=== PATIENT | female | born 2000 | race Two or more races ===

== ENCOUNTER 2024-11-16 08:05 | Emergency (ER) | payer OTHER ==
[~2024-11-16] VITALS: Ht 167.6 cm; Wt 56.7 kg
[2024-11-16] MEDS ORDERED: 0.9 % SODIUM CHLORIDE 1,000 ML IV STA (08:49)
[2024-11-16 09:30] LABS: HEMATOCRIT 37.7 % (36.0-45.00); HEMOGLOBIN 12.2 g/dL (12.0-15.00); MEAN CELL VOLUME 79.9 fL (80.00-100.00); MEAN CORPUSCULAR HGB CONC 32.5 g/dl (32.0-36.0); PLATELET COUNT 288 K/uL (150-450); RED BLOOD COUNT 4.71 M/uL (4.00-6.00); RED CELL DISTRIBUTION WIDTH 15.9 % (11.5-14.5)
[2024-11-16 09:57] LABS: CALCIUM 8.7 mg/dL (8.5-10.1); CREATININE SERUM 0.82 mg/dL (0.55-1.02); GFR 85.65; POTASSIUM 4.03 mEq/L (3.5-5.1)
[2024-11-16] MEDS ORDERED: FAMOTIDINE/PF 20 MG/2 ML VIAL IV STA (10:41)
[2024-11-16] MEDS ORDERED: ONDANSETRON HCL 2 MG/ML VIAL IV STA (10:42)
[2024-11-16] MEDS ORDERED: ONDANSETRON HCL 2 MG/ML VIAL ONE (10:45)
[2024-11-16] MEDS ORDERED: FAMOTIDINE/PF 20 MG/2 ML VIAL ONE (10:46)
== END 2024-11-16 13:51 | disposition home or self-care (01) ==
LOC: ER 08:08
PROVIDERS: Emergency Medicine
DX: K52.89 Other specified noninfective gastroenteritis and colitis (principal); R11.10 Vomiting, unspecified
CPT/HCPCS: 36415; 96365; 96366; 99282; J2405; J3490; J7030

== ENCOUNTER 2025-02-23 12:44 | Emergency (ER) | payer OTHER ==
[~2025-02-23] VITALS: Ht 167.6 cm; Wt 56.7 kg
[2025-02-23] MEDS ORDERED: 0.9 % SODIUM CHLORIDE 1,000 ML IV ONE (13:00)
[2025-02-23] MEDS ORDERED: FAMOtidine 10 MG/ML (4ML VIAL) IV ONE (13:00)
[2025-02-23] MEDS ORDERED: KETOROLAC TROMETHAMINE 30 MG VIAL IV ONE (13:00)
[2025-02-23] MEDS ORDERED: ONDANSETRON HCL 2 MG/ML VIAL IV ONE (13:00)
[2025-02-23] MEDS ORDERED: KETOROLAC TROMETHAMINE 30 MG VIAL ONE (13:20)
[2025-02-23] MEDS ORDERED: ONDANSETRON HCL 2 MG/ML VIAL ONE (13:21)
[2025-02-23] MEDS ORDERED: FAMOTIDINE/PF 20 MG/2 ML VIAL ONE (13:21)
[2025-02-23 13:52] LABS: HEMATOCRIT 35.3 % (36.0-45.00); HEMOGLOBIN 11.9 g/dL (12.0-15.00); MEAN CELL VOLUME 79.4 fL (80.00-100.00); MEAN CORPUSCULAR HEMOGLOBIN 26.9 pg (27.00-32.0); MEAN CORPUSCULAR HGB CONC 33.8 g/dl (32.0-36.0); PLATELET COUNT 332 K/uL (150-450); RED BLOOD COUNT 4.44 M/uL (4.00-6.00); RED CELL DISTRIBUTION WIDTH 14.3 % (11.5-14.5)
[2025-02-23 14:29] LABS: ALBUMIN 3.6 gm/dL (3.4-5.0); ALKALINE PHOSPHATASE 44 U/L (50-136); ALT/SGPT 31 U/L (12-78); ANION GAP 7 (10.0-20.0); AST/SGOT 22 U/L (15-37); BILIRUBIN TOTAL 0.37 mg/dL (0.3-1.2); BLOOD UREA NITROGEN 10 mg/dL (7-18); BUN CREA RATIO 13 (7.0-25.0); CALCIUM 8.9 mg/dL (8.5-10.1); CARBON DIOXIDE 27 mEq/L (21-32); CHLORIDE 113 mmol/L (98-107); CREATININE SERUM 0.77 mg/dL (0.55-1.02); GFR 91.34; GLUCOSE FASTING 83 mg/dL (65-100); OSMOLALITY SERUM 283 MOSM/KG (275-295); SODIUM 143 mmol/L (136-145); TOTAL PROTEIN 7.6 gm/dL (6.4-8.2)
[2025-02-23 14:35] LABS: HCG QUANTITATIVE < 1 mUI/mL (1-3)
[2025-02-23] MEDS ORDERED: PROTONIX40 MG PO (15:50)
[2025-02-23] MEDS ORDERED: NORFLEX100MG PO (15:50)
[2025-02-23] MEDS ORDERED: ZOFRAN8 MG PO (15:50)
== END 2025-02-23 16:00 | disposition home or self-care (01) ==
LOC: ER 12:44
PROVIDERS: General Practice
DX: R10.2 Pelvic and perineal pain (principal); N83.209 Unspecified ovarian cyst, unspecified side; R11.10 Vomiting, unspecified

== ENCOUNTER 2025-02-25 13:29 | Inpatient (IN) | payer OTHER ==
[~2025-02-25] VITALS: Ht 167.6 cm; Wt 56.7 kg
[~2025-02-25 13:29] MED LIST: NORFLEX100MG PO; PROTONIX40 MG PO; ZOFRAN8 MG PO
[2025-02-25] MEDS ORDERED: 0.9 % SODIUM CHLORIDE 1,000 ML IV SCH (13:45)
[2025-02-25 14:02] VITALS: BP 101/61
[2025-02-25 14:13] VITALS: BP 106/71; O2SAT 100
[2025-02-25 14:46] LABS: COVID-19 AG NEGATIVE (NEGATIVE)
[2025-02-25 16:43] VITALS: BP 107/66
[2025-02-25] MEDS ORDERED: ESTROGENS, CONJUGATED 25 MG VIAL IV SCH ×2 (17:00)
[2025-02-25] MEDS ORDERED: GABAPENTIN 100 MG CAPSULE PO SCH (17:00)
[2025-02-25] MEDS ORDERED: ACETAMINOPHEN 325 MG TABLET PO SCH (18:00)
[2025-02-25] MEDS ORDERED: CELECOXIB 200 MG CAPSULE PO SCH (21:00)
[2025-02-26 02:52] VITALS: BP 94/63
[2025-02-26 06:41] LABS: HEMATOCRIT 34.1 % (36.0-45.00); HEMOGLOBIN 11.4 g/dL (12.0-15.00); MEAN CELL VOLUME 80.6 fL (80.00-100.00); MEAN CORPUSCULAR HGB CONC 33.5 g/dl (32.0-36.0); PLATELET COUNT 299 K/uL (150-450); RED BLOOD COUNT 4.23 M/uL (4.00-6.00); RED CELL DISTRIBUTION WIDTH 14.1 % (11.5-14.5)
[2025-02-26 08:52] VITALS: BP 116/79
== END 2025-02-26 10:16 | disposition home or self-care (01) | DRG 761 ==
LOC: ER 13:29 → OB/GYN 14:49
PROVIDERS: General Practice; ADMIT Student in an Organized Health Care Education/Training Program; ATTEND Student in an Organized Health Care Education/Training Program
DX: N93.9 Abnormal uterine and vaginal bleeding, unspecified (principal)